=== PATIENT | female | born 2000 | race Caucasian/White ===

== ENCOUNTER 2019-03-06 14:09 | Emergency (ER) | payer BC ==
[2019-03-06 15:44] VITALS: BP 143/59
--- NOTE | 2019-03-06 16:17 | UC ---
UC General HPI - HPI Summary HPI Summary: PT STATES SHE IS ABOUT 1.5 WEEKS LATE FOR HER PERIOD; HOWVEVER, SHE HAS STARTED TO SPOT TODAY. SHE WAS LAST SEXUALLY ACTIVE 6 WEEKS AGO. SHE HAS NO PAIN, VAGINAL D/C OR LESIONS. PT STATES "I'M PARANOID BECAUSE I HAD CHLAMYDIA ONCE". SHE IS REQUESTING A URINE TEST TO R/O CHLAMYDIA. - History of Current Complaint Chief Complaint: UCGU Stated Complaint: PERSONAL Time Seen by Provider: 03/06/19 16:03 Hx Obtained From: Patient Hx Last Menstrual Period: [id number] Pain Intensity: 0 Associated Signs & Symptoms: Negative: Abdominal Pain, Dysuria, Fever - Allergy/Home Medications Allergies/Adverse Reactions: Allergies Allergy/AdvReac Type Severity Reaction Status Date / Time Penicillins Allergy Unknown Verified 03/06/19 15:45 Reaction Details Home Medications: Home Medications Ibuprofen TAB* [Advil TAB*] 400 mg PO Q6H PRN 03/06/19 [History Confirmed ] PMH/Surg Hx/FS Hx/Imm Hx Other GI/ History: CHLAMYDIA - Surgical History Surgical History: None - Social History Alcohol Use: Weekly Alcohol Amount: 5-6 Substance Use Type: Marijuana Smoking Status (MU): Never Smoked Tobacco Review of Systems All Other Systems Reviewed And Are Negative: Yes Physical Exam Triage Information Reviewed: Yes Appearance: Well-Appearing Vital Signs: Initial Vital Signs Temp 97.7 F 03/06/19 15:39 Pulse 93 03/06/19 15:39 Resp 18 03/06/19 15:39 BP 143/59 03/06/19 15:39 Pulse Ox 100 03/06/19 15:39 Vital Signs Reviewed: Yes Eyes: Positive: Conjunctiva Clear ENT: Positive: Normal ENT inspection Neck: Positive: Supple Respiratory: Positive: Lungs clear Cardiovascular: Positive: RRR Abdomen Description: Positive: Nontender, No Organomegaly, Soft Bowel Sounds: Positive: Present Pelvic Exam: Positive: Other - PT DECLINED BECAUSE NO S/S'S. Musculoskeletal: Positive: ROM Intact Neurological: Positive: Alert Psychological: Positive: Age Appropriate Behavior Skin Exam: Normal Course/Dx - Course Course Of Treatment: DIAGNOSTICS: HCG=NEGATIVE. U/A=UNREMARKABLE(SEE REPORT). NO HX HTN, BP IS VISIT RELATED FROM BEING NERVOUS. PT AGREES TO F/U WITH HER [employer] EXAMINER IF HER PERIORD DOES NOT RESUME TO WHAT IS ROUTINE FOR HER. - Diagnoses Provider Diagnosis: Screen for STD (sexually transmitted disease), Menstrual period late Discharge - Sign-Out/Discharge Documenting (check all that apply): Patient Departure All imaging exams completed and their final reports reviewed: No Studies - Discharge Plan Condition: Stable Disposition: HOME Patient Education Materials: Sexually Transmitted Diseases (ED) Referrals: CAMERON YAO [, APPLICATION, OTHER] - If Needed - Billing Disposition and Condition Condition: STABLE Disposition: Home
[2019-03-09 13:23] LABS: Neisseria gonorrhoeae (GC) RNA Negative (Negative)
--- NOTE | 2019-03-10 07:01 | UC ---
- Progress Note Progress Note: Neg GC/CH no change ljj 03/10/19 Course/Dx - Diagnoses Provider Diagnoses: Screen for STD (sexually transmitted disease), Menstrual period late Discharge - Sign-Out/Discharge Documenting (check all that apply): Post-Discharge Follow Up All imaging exams completed and their final reports reviewed: No Studies - Discharge Plan Condition: Stable Disposition: HOME Patient Education Materials: Sexually Transmitted Diseases (ED) Referrals: CAMERON YAO [, APPLICATION, OTHER] - If Needed - Billing Disposition and Condition Condition: STABLE Disposition: Home
== END 2019-03-06 16:34 | disposition home or self-care (01) ==
LOC: UCCORT 14:09
DX: Z11.3 Encounter for screening for infections with a predominantly sexual mode of transmission (principal); N92.6 Irregular menstruation, unspecified
CPT/HCPCS: 81003; 84702; 87491; 87591; 99201; G0463